=== PATIENT | male | born 1930 | race Caucasian/White ===

== ENCOUNTER 2016-08-14 12:54 | Inpatient (IN) | payer OTHER ==
--- NOTE | ~2016-08-14 | OP ---
Record Of Operation [facility] [address] [place]. [address] NAME: NAKITA RAI : 29 STATUS : ADM IN PAT#: [id number] AGE: 86 ADM/REG DATE : 08/14/16 MR#: [id number] REPORT SERV DATE: 08/15/16 DICTATED BY: Rae SILVA DATE: 08/15/16 REPORT STATUS : Draft TRANSCRIBED BY: MODL DATE: 08/15/16 DATE OF PROCEDURE: PREOPERATIVE DIAGNOSIS: Inability to place Cornejo catheter. POSTOPERATIVE DIAGNOSIS: Inability to place Cornejo catheter. PROCEDURE: Difficult Cornejo catheter, clot evacuation,. SURGEON: Rae Silva M.D. ANESTHESIA: Local. COMPLICATIONS: None. DRAINS: A 24-Ivorian, 3-way Cornejo catheter. BRIEF HISTORY: Mr. Rai is an 86-year-old, white male, admitted overnight with gross hematuria, apparent UTI, and a history of TURP. He had an 18-Ivorian Cornejo catheter placed in the ER, but he had continued bleeding and I felt he needed 3-way irrigation and ordered a 24-Ivorian 3-way Cornejo catheter on the floor, but they were unable to place it on multiple attempts. He has preop IVC filter placement and I asked him to get the catheter cart available to place catheters at bedside. I discussed this with the patient. DESCRIPTION OF PROCEDURE: Under excellent local anesthesia in the supine position, the patient was prepped and draped in a standard fashion. I used a 24-Ivorian 3-way Cornejo catheter. The urethra was somewhat tender and there was some obstruction proximally possibly due to a vesicle neck contracture. At any rate, I was able to, with some difficulty, enter the bladder and obtain dark-red urine. The blood appeared old. I put a total of 20 mL of sterile water in the balloon and initiated continuous bladder irrigation. The urine eventually cleared. I had to irrigate it by hand a few times and got several clots, but not a lot. I planned to leave my CBI. We will plan further evaluation pending his response to this. CLAUDY/ARTURO Rae Silva M.D. / [id number] CC: Cristóbal Hu M.D.
--- NOTE | ~2016-08-14 | DS ---
Discharge Summary [address] [place]. [address] NAME: NAKITA TOM : 29 STATUS : DIS IN PAT#: [id number] AGE: 86 ADM/REG DATE : 08/14/16 MR#: [id number] REPORT SERV DATE: 08/26/16 DICTATED BY: DATE: REPORT STATUS : Draft TRANSCRIBED BY: MODL DATE: 08/26/16 ADMISSION DATE: 08/14/2016 DISCHARGE DATE: 08/26/2016 PRIMARY ONCOLOGIST: Dr. Deniz Teague, [facility]. PRIMARY UROLOGIST: Dr. Ulises Pantoja. DISCHARGE DIAGNOSES: 1. Gross hematuria, persistent. 2. Chronic iron deficiency anemia. 3. Iliac deep venous thrombosis/bilateral pulmonary emboli. 4. Debility. 5. Metastatic prostate cancer. 6. Hypertension. 7. Urinary tract infection, resolved. CONSULTATIONS: 1. Dr. Ulises Pantoja, Urology, 08/15/2016. 2. Dr. Prakash Burnett, Vascular Surgery, 08/16/2016. 3. Dr. Deniz Teague, [facility], 08/17/2016. PERTINENT TEST AND PROCEDURES: Occurring between the dates of service 08/22/2016 and 08/26/2016: 1. Cystoscopy, clot evacuation, biopsy of prostatic urethra, Cornejo catheter exchange. 2. Surgical pathology report, 08/22/2016, final pathologic diagnosis regarding prostatic urethra biopsies. Prostatic ductal adenocarcinoma. CHIEF COMPLAINT UPON ADMISSION: Bloody urine and right leg swelling. HOSPITAL COURSE: Please refer to history and physical dated 08/15/[address] Hein for complete details of the patient's initial presentation upon admission and health history. Please also refer to consultations provided by Urology, Vascular Surgery, and Oncology occurring between the dates of 08/15/2016 and 08/17/2016. Please refer to interim discharge summary provided by Carmen Reis, nurse practitioner, for events occurring between the dates of service 08/15/2016 and 08/21/2016. Briefly, the patient is an 86-year-old male with a medical history significant for metastatic prostate cancer status post transurethral prostatectomy, who presented to the hospital on 08/14/2016 with complaints of right leg swelling and hematuria. Prior to admission, the patient was self-catheterization dependent. Several days prior to this admission, the patient noticed that urine was felicita blood and output was significantly decreased. The patient was admitted for further evaluation and treatment of acute urinary Discharge Summary [address] [place]. [address] NAME: NAKITA TOM : 29 STATUS : DIS IN PAT#: [id number] AGE: 86 ADM/REG DATE : 08/14/16 MR#: [id number] REPORT SERV DATE: 08/26/16 DICTATED BY: DATE: REPORT STATUS : Draft TRANSCRIBED BY: MODL DATE: 08/26/16 retention, hematuria, and right leg swelling. Dr. Pantoja, Urology was consulted regarding inability to successfully place Cornejo catheter. The patient underwent a successful placement of 24-Portuguese three-way Cornejo catheter and continuous bladder irrigation was initiated. 1. Gross hematuria, persistent. The patient received continuous bladder irrigation throughout almost entire admission secondary to persistent hematuria. The patient was followed by Urology daily. Several attempts were made to discontinue continuous bladder irrigation, but all were unsuccessful until yesterday. The patient has not received CBI for over 24 hours now. Hematuria is almost resolved. Urine is now lightly tea-colored with no evidence of felicita blood or clots. Cornejo catheter will remain in place upon discharge secondary to recent acute urinary retention. The patient will follow up with Dr. Pantoja, Urology in one month for a trial of voiding plus or minus Cornejo catheter exchange if trial of voiding unsuccessful. Home Health will follow the patient for management of Cornejo catheter care. 2. Chronic iron deficiency anemia. The patient's hemoglobin and hematocrit have remained stable despite gross hematuria. H and H is reported to be 9.3 and 28.7 today. 3. Iliac DVT/bilateral PEs. The patient had venous Doppler of right lower extremity on 08/14/2016 for complaints of lower extremity swelling. No clot was identified in the right deep system. However, there was a suggestion that there may be a clot in the iliac vein on the right side. At this time, the patient is not a candidate for anticoagulation secondary to gross hematuria. The patient underwent successful IVC filter placement on 08/16/2016. Anticoagulation will be restarted as an outpatient when hematuria has completely resolved and no further risks for bleeding are apparent. 4. Debility. This is secondary to metastatic prostate cancer and recent hospitalization. The patient is able to ambulate using a walker now. The patient declined to stay at [facility] at discharge. The patient will be followed by Home Health Care for physical therapy as an outpatient. 5. Metastatic prostate cancer. This will be managed per Dr. Deniz Teague at [facility]. Per Dr. Teague's instructions, Casodex was discontinued upon discharge. The patient most likely will start Zytiga/prednisone as an outpatient next week, and Lupron injections will be continued. 6. Hypertension. The patient will continue home dose of metoprolol upon discharge. Blood pressure has remained stable and is 119/62 with heart rate 84. 7. Urinary tract infection. The patient was treated for urinary tract infection, positive Citrobacter koseri. Treatment was completed 08/18/2016. There was no indication for additional antibiotics at discharge. DISCHARGE INSTRUCTIONS: 1. Follow up with Dr. Deniz Teague next week on Sunday or Sunday to start new treatment for metastatic prostate cancer and to decide whether or not the patient will undergo palliative radiation therapy for recent persistent hematuria. 2. Follow up with Dr. Pantoja in one month for management of Cornejo catheter and possible trial of voiding. 3. The patient was instructed to monitor Cornejo catheter output closely and to return to the emergency department for any sudden significant decrease in output, no urine output, or recurrence of gross hematuria. Discharge Summary [address] [address] NAME: NAKITA TOM : 29 STATUS : DIS IN [facility]#: [id number] AGE: 86 ADM/REG DATE : 08/14/16 MR#: [id number] REPORT SERV DATE: 08/26/16 DICTATED BY: DATE: REPORT STATUS : Draft TRANSCRIBED BY: ARTURO DATE: 08/26/16 [facility]/ARTURO SHAYE Rosado / [id number] CC: MD Salvador Louise II, M.D.
--- NOTE | ~2016-08-14 | IDS ---
Interim Discharge Summary [facility] [address] [place]. [address] NAME: NAKITA TOM : 29 STATUS : ADM IN LOCATED WITHIN [facility]#: [id number] AGE: 86 ADM/REG DATE : 08/14/16 MR#: [id number] REPORT SERV DATE: 08/21/16 DICTATED BY: MARTHA REIS DATE: 08/21/16 REPORT STATUS : Draft TRANSCRIBED BY: MODL DATE: 08/21/16 ADMISSION DATE: 08/14/2016 DISCHARGE DATE: DATE OF DISCHARGE: Unknown. INTERIM DIAGNOSES: 1. Urinary tract infection, positive Citrobacter koseri, completed treatment on August 18, 2016. 2. Metastatic prostate cancer. 3. Iliac deep vein thrombosis and bilateral pulmonary embolism. 4. Gross hematuria. 5. Iron deficiency anemia. 6. Debility. CONSULTATIONS: 1. Gu, Dr. Pantoja, August 15, 2016. 2. Oncology, Dr. Deniz Teague, August 16, 2016. PROCEDURES: 1. August 15, 2016, difficult Cornejo catheter placement, clot evacuation, Dr. Pantoja. 2. August 16, 2016, ultrasound-guided percutaneous access, left common femoral vein, inferior vena cava cavogram, placement of inferior vena cava filter ([place]) by Dr. Burnett. IMAGIN. Chest x-ray, August 14, 2016; impression, multiple bilateral pulmonary nodules of varying sizes consistent with hematogenous metastasis. 2. CT abdomen and pelvis, August 14, 2016; impression, multiple pulmonary nodules, both bilateral lung gonzalez, the largest in the right lower lobe, 2.7 cm diameter consistent with pattern of pulmonary metastasis disease. No film prior exam. Enlarged right external and internal iliac lymph node suspicious for a nodule metastatic disease. Enlarged prostate gland with diffuse infiltration periprostatic fat planes and effacement of the fat planes between the prostate and seminal vesicles suggesting extraprostatic extension of malignancy in the appropriate clinical setting. Diffusely thickened bladder, which is decompensated with Cornejo catheter. Bladder thickening may represent sequelae of chronic cystitis. Chronic bladder outlet obstruction or infiltration of the bladder from malignancy. Diverticulosis descending and sigmoid colon, not acute diverticulitis pattern status post cystoscopy. 3. Venous Doppler ultrasound, lower extremity, August 14, 2016; impression, no clot in the right deep system. There may be a clot in the iliac vein on the right side. 4. CT of the chest, abdomen, and pelvis, August 16, 2016; impression, bilateral moderate volume pulmonary emboli involving bilateral upper lobe and to a lesser degree, bilateral lower lobe pulmonary artery branches as described, on the right. There is some filling deficit in the distal right main pulmonary artery. Finding compatible with extensive pulmonary metastasis disease with nodules measuring up to 24 x 29 mm on Interim Discharge Summary [address] [address] NAME: NAKITA TOM : 29 STATUS : ADM IN PAT#: [id number] AGE: 86 ADM/REG DATE : 08/14/16 MR#: [id number] REPORT SERV DATE: 08/21/16 DICTATED BY: MARTHA REIS DATE: 08/21/16 REPORT STATUS : Draft TRANSCRIBED BY: ARTURO DATE: 08/21/16 the right and up to 20 x 25 mm on the left. Bilateral lower lobe atelectasis, right greater than left with trace right pleural fluid. Stable right iliac chain lymphadenopathy. 5. Bone scan on August 16, 2016; impression, suspect bony metastasis in the pelvis. Possible degenerative changes in the midthoracic spine. 6. MRI of the brain, August 16, 2016; impression, chronic small vessel ischemic changes volume loss. No acute finding demonstrated on noncontrast and contrast-enhanced MRI. Examination of the brain specifically has no evidence of metastatic disease. LABORATORY DATA: August 21, 2016: WBC 6.4, his hemoglobin 10.2, hematocrit 30.5, and platelet count is 186. COURSE OF HOSPITAL STAY: Please refer to history and physical dictated by Dr. Hein on August 14, 2016, for complete admission details, as well as consultation notes by Dr. Pantoja and Dr. Teague. This patient is an 86-year-old male, who presented in [facility]'s Emergency Room with complaints of right lower extremity swelling and bloody urine. He does present with a history of prostate cancer. He has been under the care of Dr. Dowd at [facility], was currently taking Lupron. He also presents with a history of hypertension, status post transurethral prostatectomy. He did present with complaints of right lower leg swelling and hematuria. The patient stated that prostate surgery was several years ago. Initially, he has done well, but did not receive chemotherapy or radiation. The patient did state that around May, he noticed an immediate hematuria during occasional self- catheterization. He was evaluated by Dr. Dowd, but no intervention at that time. The patient stated he had ongoing worsening of hematuria. Prior to this hospitalization, the patient stated self-catheterization; he noticed felicita blood and then at that time felt that he needed to be evaluated in the emergency room. 1. Urinary tract infection. Positive Citrobacter koseri. The patient was initially started on ceftriaxone upon admission. Cultures did reveal positive infection, was then changed to Ceftin. The patient did complete treatment on August 18, 2016. 2. Metastatic prostate cancer. As noted above, the patient has been followed by Dr. Dowd at [facility], had not seen an oncologist. They stated that he had been given Lupron in the past. The patient was evaluated by Dr. Deniz Teague of [facility]. At this time, Oncology is following. No treatment plan has been finalized due to determining the patient's performance status. 3. Iliac DVT and bilateral PEs status post IVC filter placed on August 16, [address] Burnett. The patient at this time has been unable to use anticoagulation due to gross hematuria. Oncology again is also following. 4. Gross hematuria. As noted upon admission, the patient was having felicita blood. Dr. Pantoja was consulted to see the patient. At the time of admission, the patient did undergo placement of a 3-way Cornejo catheter with continuous bladder irrigation. The patient has been monitored. At this time, the patient is potentially undergoing a cystoscopy in the morning with Dr. Pantoja. 5. Iron deficiency anemia. As noted, the patient's upon admission, the patient's hemoglobin was 7.6. The patient's hemoglobin was monitored and was 7.6, 10.5. The patient was evaluated for iron deficiency anemia. He was given Nulecit and started on Interim Discharge Summary [address] [address] NAME: NAKITA TOM : 29 STATUS : ADM IN LOCATED WITHIN [facility]#: [id number] AGE: 86 ADM/REG DATE : 08/14/16 MR#: [id number] REPORT SERV DATE: 08/21/16 DICTATED BY: MARTHA REIS DATE: 08/21/16 REPORT STATUS : Draft TRANSCRIBED BY: MODFernando DATE: 08/21/16 per protocol. At this time, the patient's hemoglobin was 10.2, hematocrit 30.5. He is being continued to be monitored. 6. Debility. The patient has had decreased performance status prior to this admission. PT evaluation was ordered on August 18, 2016. This was pending. The patient should be evaluated today. Discharge plan will be per their recommendations. 7. Disposition. guest house manager is working with the patient regarding discharge planning. At this time, it is unknown if the patient will be intermediate facility versus rehab versus home health PT. Oncology has continued to evaluate the patient. I am unsure per performance status if he will be eligible for chemotherapy and due to patient's progressed disease, the patient may transition to hospice. 8. The patient will be followed by Dr. Yuriy Cortez. [facility]/MODL Martha Reis NP / [id number] CC: MD Salvador Rios M.D.
--- NOTE | ~2016-08-14 | CN ---
Consultation Report [facility] [address] [place]. [address] NAME: NAKITA RAI : 29 STATUS : ADM IN PAT#: [id number] AGE: 86 ADM/REG DATE : 08/14/16 MR#: [id number] REPORT SERV DATE: 08/16/16 DICTATED BY: Rae SILVA DATE: 08/15/16 REPORT STATUS : Draft TRANSCRIBED BY: MODL DATE: 08/15/16 DATE OF CONSULTATION: CHIEF COMPLAINT: Gross hematuria, UTI, and possible DVT. HISTORY OF PRESENT ILLNESS: Mr. Rai is an 86-year-old, white male, who underwent a TURP some time in 2015. Apparently, he was found to have prostate cancer, but I have no operative note or other imaging to document that. This was apparently done by Dr. Dowd at [place]. He was in retention prior to that and continues on self-catheterization by his description. He has been bleeding since May and I have no idea why it took him so long to come and that be evaluated or why he is here. At any rate, he was seen in the emergency room last night with gross hematuria and found to have apparent urinary tract infection and a possible pelvic DVT. An 18-Maltese Cornejo catheter was replaced and it has drained reasonably well since that time. PAST MEDICAL HISTORY: Glaucoma, reflux esophagitis, hypertension, arthritis, and BPH. PAST SURGICAL HISTORY: 1. Vasectomy, 03/30/2015, TUMT. 2. December 2015, TURP. 3. Cholecystectomy. 4. Partial knee replacement. 5. Cardiac ablation. 6. Hernia repair. FAMILY HISTORY: Negative for urologic disease. SOCIAL HISTORY: The patient denies use of alcohol or tobacco. He is a previous smoker. REVIEW OF SYSTEMS: Except as noted above, full twelve-point review of systems is negative. PHYSICAL EXAMINATION: GENERAL: Elderly white male, afebrile with normal vital signs. Alert oriented x3. CHEST: No respiratory distress. HEART: Regular rate and rhythm. ABDOMEN: Nontender, nondistended. It is flat. No suprapubic distention noted. He has an indwelling 18-Maltese Cornejo draining bloody red urine. : He has a normal-appearing penis; otherwise, digital exam not performed. EXTREMITIES: He has some right lower extremity edema. PERTINENT LABORATORY: Creatinine 0.87. Hemoglobin 10.5. IMPRESSION: 1. History of transurethral resection of the prostate with persistent urinary retention. Consultation Report [id number] [place]. [address] NAME: NAKITA RAI : 29 STATUS : ADM IN PAT#: [id number] AGE: 86 ADM/REG DATE : 08/14/16 MR#: [id number] REPORT SERV DATE: 08/16/16 DICTATED BY: Rae SILVA DATE: 08/15/16 REPORT STATUS : Draft TRANSCRIBED BY: ARTURO DATE: 08/15/16 2. History of prostate cancer found at the time of transurethral resection of the prostate, stage unknown. 3. Gross hematuria. 4. Urinary tract infection. 5. Possible deep vein thrombosis. PLAN: 1. We will try to get the records from [place] to see if we can elucidate his history a little bit better. 2. I think he needs to be changed to a larger 3-way Cornejo, preferably the 24-Maltese. This was attempted by the nurses x2 at the bedside and I had to place a 24-Maltese Cornejo irrigated clots and began him on CBI. Further clot evacuation operative inspection will depend upon his clinical course. I believe he is going to have an IVC filter placed and hold off on anticoagulation for now. CLAUDY/ARTURO Rae Silva M.D. / [id number] CC: Cristóbal Hu M.D. Amar Singh, MD
--- NOTE | ~2016-08-14 | OP ---
Record Of [facility] [address] [place]. [address] NAME: NAKITA RAI : 29 STATUS : ADM IN [facility]#: [id number] AGE: 86 ADM/REG DATE : 08/14/16 MR#: [id number] REPORT SERV DATE: 08/16/16 DICTATED BY: DEBBIE BURNETT DATE: 08/16/16 REPORT STATUS : Draft TRANSCRIBED BY: MODL DATE: 08/16/16 DATE OF PROCEDURE: 08/15/2016 PREOPERATIVE DIAGNOSIS: Deep venous thrombosis with contraindication to anticoagulation. POSTOPERATIVE DIAGNOSIS: Deep venous thrombosis with contraindication to anticoagulation. PROCEDURE: 1. Ultrasound-guided percutaneous access, left common femoral vein. 2. Inferior vena cavogram. 3. Placement of inferior vena cava filter. ([place]). SURGEON: Debbie Burnett M.D. INSPECTOR REPAIRER [place]: [place]. ANESTHESIA: Local with MAC. ESTIMATED BLOOD LOSS: 10 mL. CONTRAST: 20 mL. COMPLICATIONS: None. INDICATION: Mr. Rai is a pleasant 86-year-old man, admitted to the hospital with right lower extremity DVT. Unfortunately, he has gross hematuria which has been worsening recently. As a result, he cannot be anticoagulated. We were asked to place inferior vena cava filter to prevent pulmonary embolism. DETAILS OF PROCEDURE: After informed consent was obtained, the patient was brought to the endovascular suite, and placed in supine position. After administration of IV sedation, he was prepped and draped in usual sterile fashion. A time-out was performed. I commenced the procedure with ultrasound-guided percutaneous access of the left common femoral vein. A permanent image of vein documenting patency was saved and stored in the patient's chart. I accessed with an 18-gauge entry needle and passed a Bentson wire confirmed within the vena cava under fluoroscopy. We then dilated subcutaneous tract. I then advanced the delivery sheath for the [place] inferior vena cava filter of the inferior vena cava. Inferior vena cavogram was performed which showed a patent inferior vena cava with no thrombus. Renal veins were visualized. The filter was deployed with the tip at the level of renal veins. The filter was in good position. After that the wires and catheters were removed. The puncture site was closed with 4-0 Monocryl and a pressure dressing. The patient tolerated the procedure well with no complications. MWF/MODL Record Of [facility] [address] [address] NAME: NAKITA RAI : 29 STATUS : ADM IN [facility]#: [id number] AGE: 86 ADM/REG DATE : 08/14/16 MR#: [id number] REPORT SERV DATE: 08/16/16 DICTATED BY: DEBBIE BURNETT DATE: 08/16/16 REPORT STATUS : Draft TRANSCRIBED BY: MODL DATE: 08/16/16 Debbie Burnett M.D. / [id number] CC: Cristóbal Hu M.D.
--- NOTE | ~2016-08-14 | OP ---
Record Of Operation [facility] [address] [place] [place]. [address] NAME: NAKITA RAI : 29 STATUS : ADM IN PAT#: [id number] AGE: 86 ADM/REG DATE : 08/14/16 MR#: [id number] REPORT SERV DATE: 08/22/16 DICTATED BY: Rae SILVA DATE: 08/22/16 REPORT STATUS : Draft TRANSCRIBED BY: MODL DATE: 08/22/16 DATE OF PROCEDURE: 08/22/2016 PREOPERATIVE DIAGNOSIS: Persistent gross hematuria with history of metastatic prostate cancer. POSTOPERATIVE DIAGNOSIS: Persistent gross hematuria with history of metastatic prostate cancer, locally advanced prostate cancer with dramatic prostatic urethral involvement. PROCEDURES: Cystoscopy, clot evacuation, biopsy of prostatic urethra, examination under anesthesia, Cornejo catheter placement. SURGEON: Rae Silva M.D. ANESTHESIA: General endotracheal. COMPLICATIONS: None. DRAINS: A 24-Thai three-way Cornejo catheter. BRIEF HISTORY: Mr. Rai is an 86-year-old white male, found to have high-grade prostate cancer at transurethral resection last year. He has been bleeding for several months, finally he came to the hospital. He had a catheter in for about a week. While further evaluation was undertaken and while it is cleared largely, he had persistent bleeding and the consideration has been to proceed with external beam radiation therapy for attempts at controlling his hematuria versus other therapies and/or hospice. We felt that we needed to make sure his bladder was clear before proceeding and the above procedure was proposed. Risks of bleeding, infection, anesthesia, inability to eradicate disease were discussed. There were no unanswered questions. DESCRIPTION OF PROCEDURE: Under excellent general anesthesia, the patient was prepped and draped in a standard lithotomy position. Digital exam revealed a flat firm prostate with extension bilaterally. Cystoscopy was performed with a 30-degree lens, revealed a normal anterior urethra. Posterior urethra showed a likely high-grade tumor that completely replaced the entire prostatic urethra. There was no discernible bladder neck. The urethra was fixed as one might expect and I could never find either ureteral orifice. The bladder itself actually was spared and there was only a small amount of clot that had to be evacuated. There were multiple pieces of tissue in the prostatic urethra and I biopsied several of these trying to not create any more bleeding that was already present. I did not feel that further resection would probably help with the situation and may worsen the problem and decided to terminate the procedure. I placed a 24-Thai three-way Cornejo catheter making sure it was all the way to the bladder and placed 40 mL of sterile water in the balloon. This left only about 2 cm of exposed catheter. So, in addition to the above, his catheter might have been pulled partially into his prostatic urethra. At any rate, we would put him back on CBI and plan to proceed as indicated. The pathology will likely confirm the visual diagnosis and further treatment with systemic therapy, local therapy, Record Of Operation [address] [place]. [address] NAME: NAKITA RAI : 29 STATUS : ADM IN PAT#: [id number] AGE: 86 ADM/REG DATE : 08/14/16 MR#: [id number] REPORT SERV DATE: 08/22/16 DICTATED BY: Rae SILVA DATE: 08/22/16 REPORT STATUS : Draft TRANSCRIBED BY: ARTURO DATE: 08/22/16 etc, will have to be determined after consultation with the patient and his family. CLAUDY/ARTURO Rae Silva M.D. / [id number] CC: MD Salvador Louise II, M.D. Davey B. Daniel, M.D.
--- NOTE | ~2016-08-14 | HP ---
History And Physical [place] [facility] [place]. [address] NAME: NAKITA TOM : 29 STATUS : ADM IN [facility]#: [id number] AGE: 86 ADM/REG DATE : 08/14/16 MR#: [id number] REPORT SERV DATE: 08/15/16 DICTATED BY: WHIT MCLEAN DATE: 08/14/16 REPORT STATUS : Draft TRANSCRIBED BY: ARTURO DATE: 08/14/16 DATE OF ADMISSION: 08/14/2016 CHIEF COMPLAINT: Right leg swelling and bloody urine. HISTORY OF PRESENT ILLNESS: This is an 86-year-old male with medical history significant for hypertension, prostate cancer, status post transurethral prostatectomy, who presented to the hospital with complaints of right leg swelling and hematuria. The patient reported that he had a prostate surgery several years ago and was initially doing well, did not receive any chemotherapy or radiation therapy. Post prostatectomy, has actually had a Cornejo catheter which was later discontinued. It was later advised to continue self intermittent catheterization. He reports that he continues to follow up with Urology, Dr. Dowd at the [facility] without any significant complications. However, around May, he noticed that he had intermittent hematuria doing occasional self catheterization. In the last few days, he reports that he has been having frequency and nocturia, had to wake up multiple times at night to perform self catheterization. In the last 24 hours, he noticed that he has been having less urine output. He also noticed that the hematuria has continued to progressively get worse. Prior to presentation in the hospital, he said he performed a self-catheterization at home and noticed that the urine was felicita blood, and hence decided to come to the hospital. He also complained of progressive right leg swelling that has been getting worse in the last 6 months. There is associated significant warmth and redness of the right lower extremity. He denies any shortness of breath. No chest pain. No palpitation. No presyncope and no syncopal episode. He also denies any fever. No chills. No abdominal pain or flank pain. PAST MEDICAL HISTORY: Significant for: 1. Hypertension. 2. Prostate cancer. PAST SURGICAL HISTORY: Prostatectomy. ALLERGIES: HE IS ALLERGIC TO ASPIRIN. HOME MEDICATIONS: 1. Cyanocobalamin 1000 mcg p.o. daily. 2. Artificial Tears 1 alternative p.r.n. 3. Glucosamine chondroitin tab 2 tabs p.o. daily. 4. Ascorbic acid 500 mg p.o. daily. 5. PreserVision AREDS two soft gels 1 capsule p.o. b.i.d. 6. Zioptan 0.0015% eye drops, 1 drop at bedtime. 7. Pravastatin 20 mg tab p.o. daily. 8. Metoprolol 50 mg tab p.o. daily. 9. Lupron 1 dose IM q.4 hours. FAMILY HISTORY: Denies any history of prostate cancer, colon cancer, diabetes as well as History And Physical [address] [address] NAME: NAKITA TOM : 29 STATUS : ADM IN [facility]#: [id number] AGE: 86 ADM/REG DATE : 08/14/16 MR#: [id number] REPORT SERV DATE: 08/15/16 DICTATED BY: WHIT MCLEAN DATE: 08/14/16 REPORT STATUS : Draft TRANSCRIBED BY: ARTURO DATE: 08/14/16 coronary artery disease. SOCIAL HISTORY: Denies drinking alcohol. Smoking cigarettes or illicit drug use. Presently lives with his . REVIEW OF SYSTEMS: A 12-point review of systems performed essentially negative except for positive findings as per HPI. PHYSICAL EXAMINATION: VITAL SIGNS: Blood pressure 133/74 mmHg, pulse 98 beats per minute, respiratory rate 18 cycles per minute. GENERAL: Not in any acute distress. Alert and oriented x3. HEENT: Normocephalic, atraumatic. Extraocular muscles intact. Not pale. Nonicteric. Oral mucosa moist. NECK: Supple. CHEST: Equal expansion. Nontender. LUNGS: Clear to auscultation bilaterally. CARDIOVASCULAR: Regular rate and rhythm. S1, S2. No gallops, no rubs, no murmurs. ABDOMEN: Bowel sounds normoactive, soft, and nontender. No palpable organomegaly. Costovertebral angle tenderness negative. EXTREMITIES: Right lower extremity is edematous, tender, red and warmth. Left lower extremities intact. NEUROLOGIC: Alert and oriented x3. Cranial nerves 2 through 12 intact. Strength in all extremities 5/5. LABORATORY DATA: Chemistry: Sodium 132, potassium 4.3, chloride 94, bicarb 28, BUN 16, creatinine 0.87, GFR 78, glucose 105, and calcium 8.5. Total protein 6.6, albumin 3.3, globulin 3.3, albumin to globulin ratio 1.0, alkaline phosphatase 96, ALT 15, AST 42, total bilirubin 0.8. Hematology; WBC 7.6, hemoglobin 10.5, hematocrit 32.3, MCV 82.2, platelets 103, INR 1.3, PTT 41.6. Urinalysis: Apparent cloudy, leukocyte esterase positive, wbc greater than 182, rbc greater than 182, WBC clumps many. Urine culture are pending. Blood cultures ordered. IMAGING: Venous Doppler ultrasound. Impression, no clot in the right deep system. There may be a clot in the iliac vein on the right side. SUMMARY: This is an 86-year-old male with medical history significant for hypertension, prostate cancer, status post transurethral prostatectomy, who presented to the hospital with acute urinary retention, hematuria, and right lower extremity swelling. ASSESSMENT AND PLAN: 1. Hematuria. 2. Possible urinary tract infection. 3. Acute deep vein thrombosis in the iliac system. 4. Normocytic anemia. 5. Adenocarcinoma of the prostate. History And Physical [address] [address] NAME: NAKITA TOM : 29 STATUS : ADM IN [facility]#: [id number] AGE: 86 ADM/REG DATE : 08/14/16 MR#: [id number] REPORT SERV DATE: 08/15/16 DICTATED BY: WHIT MCLEAN DATE: 08/14/16 REPORT STATUS : Draft TRANSCRIBED BY: ARTURO DATE: 08/14/16 6. Hypertension. PLAN: 1. Hematuria. The patient's Cornejo catheter was successfully placed in the ER to relieve the patient's acute urinary retention. Urine bag full of felicita blood noted. The patient's hemoglobin on presentation is 10.5. We will continue to monitor the patient's hemoglobin. I will consult Urology for possible urinary irrigation at this time. I will also obtain a CT of the abdomen and pelvis to rule out acute pelvic mass. I will obtain CT of the abdomen and pelvis to rule out any intra-abdominal or pelvic pathology such as malignancy. 2. UTI. The patient presented with frequency, urgency, and also noted to have some acute urinary retention and hematuria. The patient's urinalysis shows positive leukocyte esterase and WBC clumps. Given the patient's known urology symptoms, I will start the patient on empiric IV ceftriaxone and will follow the patient's urine culture. 3. History of prostate cancer, status post transurethral prostatectomy. The patient reported that post surgery, he was told by his primary urologist that the surgery was also for curative intent, and no evidence of recurrence of disease. At this time, we will consult Urology to help guide the patient's management. 4. Acute DVT of the iliac system. Based on patient's presentation and known findings on ultrasound of the right lower extremity, I will go ahead and consult Vascular Surgery for possible placement of an IVC filter. This patient will not be able to undergo anticoagulation due to acute ongoing bleed due to the hematuria. 5. Normocytic anemia secondary to acute blood loss. We will monitor H and H at this point. 6. Thrombocytopenia. No definitive etiology for the patient's thrombocytopenia. At this time, we will continue to monitor the patient's platelet count. If the patient's platelet count drops below 150 with evidence of ongoing bleed, we will consider transfusing platelets at this time. 7. Hypertension. We will recommend the patient's home dose of antihypertensives and continue to monitor blood pressure closely. 8. DVT prophylaxis is contraindicated due to active bleeding. 9. Code status is full code. 10.The patient to be admitted to the Hospitalist Service and will be followed up. Urology and vascular surgeon have been consulted at this time. IOO/MODL Whit Mclean MD / [id number] CC: Cristóbal Tee M.D.
--- NOTE | ~2016-08-14 | HP ---
History And Physical [address] [address] NAME: NAKITA TOM : 29 STATUS : ADM IN [facility]#: [id number] AGE: 86 ADM/REG DATE : 08/14/16 MR#: [id number] REPORT SERV DATE: 08/15/16 DICTATED BY: WHIT MCLEAN DATE: 08/14/16 REPORT STATUS : Draft TRANSCRIBED BY: ARTURO DATE: 08/14/16 DATE OF ADMISSION: 08/14/2016 CHIEF COMPLAINT: Bloody urine and right leg swelling. HISTORY OF PRESENT ILLNESS: DICTATION ENDS HERE CHANRDAKANT/ARTURO Whit Mclean MD / [id number] CC: Cristóbal Tee M.D.
--- NOTE | ~2016-08-14 | CN ---
Consultation Report [facility] [address] [place]. [address] NAME: AMANDO RAI : 29 STATUS : ADM IN PAT#: [id number] AGE: 86 ADM/REG DATE : 08/14/16 MR#: [id number] REPORT SERV DATE: 08/17/16 DICTATED BY: DENIZ TEAGUE DATE: 08/16/16 REPORT STATUS : Draft TRANSCRIBED BY: MODL DATE: 08/16/16 CONSULTATION NOTE. DATE OF CONSULTATION: REASON FOR CONSULTATION: Metastatic prostate cancer. HISTORY OF PRESENT ILLNESS: Mr. Rai is an 86-year-old gentleman, who reports few other medical problems prior to some difficulty with urination last year. He underwent a transurethral prostatectomy and was found to have a Adelina 9 prostate cancer. This was done on 12/07/2015. He was found to have a Gratiot 5+4=9 prostate cancer in the transurethral specimen. He reports that in January or February, he was placed on Lupron with a second injection 6 months later. The patient reports that in June his PSA was decreasing. However, beginning in May, he started having worsening hematuria. He was brought to the emergency room last night due to worsening of the hematuria as well as right leg pain with worsening swelling over the last few days. He was found to have no clot in the right leg, possibly a small clot in the iliac vein on the right side. CT scan on the chest however showed bilateral moderate volume pulmonary emboli in the upper lobe and to a lesser degree lower lobes. He was also found to have multiple large pulmonary nodules measuring 2 to 3 cm in both lungs suggestive of metastatic disease. CT scan of abdomen and pelvis showed fullness in the right iliacs suggestive of a DVT. There is an area of sclerosis in the left pubic ramus as well. The patient has had a Cornejo catheter placed with continuous bladder irrigation, which seems to be helping the bleeding. He had an IVC filter placed to decrease the risk of further emboli to the lung. His CT scan also showed significant infiltration into the bladder likely from the prostate. His PSA is 26 at this time. He is unable to tell me what his last PSA was. Renal function is normal. Albumin is decreased to 2.6. Blood count showed a hemoglobin of 9.3 with an MCV of 91, suggesting iron deficiency related to the bleeding. PAST MEDICAL HISTORY: Hypertension, prostate cancer diagnosed in 2016, Adelina 9. PAST SURGICAL HISTORY: Transurethral prostatectomy. ALLERGIES: TO ASPIRIN. HOME MEDICATIONS: B12, Artificial Tears, glucosamine, ascorbic acid, pravastatin, metoprolol, Lupron q.4 months to q.6 months. FAMILY HISTORY: No family history of prostate cancer or breast cancer. SOCIAL HISTORY: He works for [employer] in [employer], does not drink or smoke. Lives with his of many years. REVIEW OF SYSTEMS: Consultation Report [address] [place]. [address] NAME: AMANDO RAI : 29 STATUS : ADM IN PAT#: [id number] AGE: 86 ADM/REG DATE : 08/14/16 MR#: [id number] REPORT SERV DATE: 08/17/16 DICTATED BY: DENIZ TEAGUE DATE: 08/16/16 REPORT STATUS : Draft TRANSCRIBED BY: ARTURO DATE: 08/16/16 A 12-point review of systems; mild weight loss, chronic edema in both legs, but worsening on the right leg recently, positive for shortness of breath, positive for weight loss and fatigue. PHYSICAL EXAMINATION: VITAL SIGNS: Temperature is 98.1, heart rate of 96, BP 104/51. HEENT: Pupils equal, round, reactive. Extraocular movements are intact. There are no oral lesions. He has some temporal wasting. LUNGS: Clear to auscultation. No wheezes or rales. CARDIAC: Regular rate and rhythm. Normal S1, S2. ABDOMEN: Soft, scaphoid, nontender nondistended. No hepatomegaly. No splenomegaly. EXTREMITIES: There is chronic edema in the right leg greater than the left leg. DIAGNOSTIC DATA: A CT scan was personally reviewed and discussed the results with the patient. 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 He reports that he has been on Lupron for the last six months. 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 His performance status at this point looks quite poor and I am unsure whether further treatment should be considered or not. I think we can reassess after he has had a few days of recovery before deciding whether to consider adding Zytiga to the Lupron. Iron-deficiency anemia. This is from his chronic anemia, will need some oral iron supplements at some point. Confirmed the patient's advanced directive wishes. He did not wish to be intubated or resuscitated. POST form has been completed on the chart. One of my partners will follow with him through this week. DBD/MODL Deniz Teague M.D. / [id number] CC: Cristóbal Hu M.D. J. Patrick Dilworth, M.D.
[~2016-08-14 12:54] MED LIST: FISH-EPA1000 MG PO; GLUCCHONDR PO; LECITHIN PO; LOP50 PO; LUTEIN20 MG OR; NASONEX NAS; PRILO PO; SYSTANE OP; ZOCOR20 PO
[2016-08-14 14:38] LABS: BASOPHILS 0.1 %; BASOPHILS ABSOLUTE 0.01 10/3/uL (0.0-0.16); EOSINOPHILS 0 %; IMMATURE GRANULOCYTES 0.3 %; IMMATURE GRANULOCYTES ABSOLUTE 0.02 10/3/uL (0.0-0.11); LYMPHOCYTES 10.4 %; LYMPHOCYTES ABSOLUTE 0.79 10/3/uL (0.67-4.30); MEAN CORPUSCULAR HEMOGLOB 26.7 pg (26.0-34.0); MEAN CORPUSCULAR VOLUME 82.2 fL (80-100); MONOCYTES 10.2 %; MONOCYTES ABSOLUTE 0.77 10/3/uL (0.21-1.20); NEUTROPHILS ABSOLUTE 5.97 10/3/uL (2.02-8.40); PLATELET COUNT 103 10/3/uL (150-400); RBC DISTRIBUTION WIDTH 15.6 % (12.0-16.0); RED CELL COUNT 3.93 10/6/uL (4.7-6.1); WHITE BLOOD CELLS 7.6 10/3/uL (4.5-10.5)
[2016-08-14 14:39] LABS: HEMATOCRIT 32.3 % (40.0-51.0); HEMOGLOBIN 10.5 g/dL (13.6-17.8); MANUAL DIFF NO %; MEAN CORPUS HGB CONC 32.5 g/dL (32.0-36.0)
[2016-08-14 14:56] LABS: ALBUMIN 3.3 G/DL (3.5-5.0); ALKALINE PHOSPHATASE 96 U/L (45-117); BUN (BLOOD UREA NITROGEN) 16 MG/DL (6-23); CALCIUM, SERUM 8.5 MG/DL (8.5-10.4); CHLORIDE, SERUM 94 MMOL/L (96-112); CO2 (CARBON DIOXIDE) 28 MMOL/L (24-34); CREATININE 0.87 MG/DL (0.70-1.30); GFR AFRICAN AMERICAN 90 ML/MIN (>=60); GFR NON AFRICAN AMERICAN 78 ML/MIN (>=60); POTASSIUM, SERUM 4.3 MMOL/L (3.5-5.3); SGOT(AST) 42 U/L (5-40); SGPT(ALT) 15 U/L (5-65); SODIUM, SERUM 132 MMOL/L (135-148); TOTAL BILIRUBIN 0.8 MG/DL (0-1.2); TOTAL PROTEIN 6.6 G/DL (6.0-8.5)
[2016-08-14 14:58] LABS: GLOBULIN 3.3 G/DL (2.5-4.1); GLUCOSE, SERUM 105 MG/DL (60-99)
[2016-08-14 15:27] LABS: INTERNATIONAL NORMAL RATI 1.3 UNITS (-); PROTIME (NOT ORD) 15.7 SEC (12.0-14.5)
[2016-08-14 15:31] LABS: PROCALCITONIN <0.05 ng/mL (<0.5)
[2016-08-14] MEDS ORDERED: VITAMIN B-3 PO (17:22)
[2016-08-14] MEDS ORDERED: CYANO1000T PO (17:23)
[2016-08-14] MEDS ORDERED: GLUCCHONDR PO (17:23)
[2016-08-14] MEDS ORDERED: REFRESH OPH (17:23)
[2016-08-14] MEDS ORDERED: MEGA RED KRILL OIL PO (17:24)
[2016-08-14] MEDS ORDERED: VITC500 PO (17:24)
[2016-08-14] MEDS ORDERED: ZIOPTAN 0.00151 EACH OPH (17:25)
[2016-08-14] MEDS ORDERED: PRAVAC PO (17:25)
[2016-08-14] MEDS ORDERED: PRESERVISION A1 EAC1 PO (17:25)
[2016-08-14] MEDS ORDERED: LUPRON IM (17:26)
[2016-08-14] MEDS ORDERED: LOP50 PO (17:26)
[2016-08-14 17:46] LABS: ASCORBIC ACID (UR NOT ORDER) 20 (NEG); BILIRUBIN, URINE NEGATIVE (NEG); ER URINALYSIS TAT 0 Hrs 24 Mins; KETONE, URINE NEGATIVE (NEG); LEUKOCYTE ESTERASE(NOT OR MOD (NEG); NITRITE (URINE) NEG (NEG)
[2016-08-14 17:47] LABS: WBC (NOT ORDERED) (RFLEX) > 182 (0-5)
[2016-08-14 21:35] LABS: FREE T4 1.16 NG/DL (0.76-1.46); ULTRASENSITIVE TSH 0.916 MCIU/ML (0.358-3.740)
[2016-08-15 07:22] LABS: BASOPHILS 0.1 %; BASOPHILS ABSOLUTE 0.01 10/3/uL (0.0-0.16); EOSINOPHILS 0.1 %; EOSINOPHILS ABSOLUTE 0.01 10/3/uL (0.0-0.53); HEMATOCRIT 29.8 % (40.0-51.0); HEMOGLOBIN 9.9 g/dL (13.6-17.8); IMMATURE GRANULOCYTES 0.3 %; IMMATURE GRANULOCYTES ABSOLUTE 0.02 10/3/uL (0.0-0.11); LYMPHOCYTES 18.3 %; LYMPHOCYTES ABSOLUTE 1.37 10/3/uL (0.67-4.30); MANUAL DIFF NO %; MEAN CORPUS HGB CONC 33.2 g/dL (32.0-36.0); MEAN CORPUSCULAR HEMOGLOB 27.1 pg (26.0-34.0); MEAN CORPUSCULAR VOLUME 81.6 fL (80-100); MEAN PLATELET VOLUME 8.5 fL (9.2-13.0); MONOCYTES 14.8 %; MONOCYTES ABSOLUTE 1.11 10/3/uL (0.21-1.20); NEUTROPHILS 66.4 %; NEUTROPHILS ABSOLUTE 4.96 10/3/uL (2.02-8.40); PLATELET COUNT 118 10/3/uL (150-400); RBC DISTRIBUTION WIDTH 15.8 % (12.0-16.0); RED CELL COUNT 3.65 10/6/uL (4.7-6.1); WHITE BLOOD CELLS 7.5 10/3/uL (4.5-10.5)
[2016-08-15 07:49] LABS: BUN (BLOOD UREA NITROGEN) 17 MG/DL (6-23); CALCIUM, SERUM 8.4 MG/DL (8.5-10.4); CHLORIDE, SERUM 93 MMOL/L (96-112); CO2 (CARBON DIOXIDE) 27 MMOL/L (24-34); GFR AFRICAN AMERICAN 98 ML/MIN (>=60); GFR NON AFRICAN AMERICAN 85 ML/MIN (>=60); GLUCOSE, SERUM 106 MG/DL (60-99); PHOSPHORUS, SERUM 2.7 MG/DL (2.5-4.5); POTASSIUM, SERUM 3.9 MMOL/L (3.5-5.3); SODIUM, SERUM 130 MMOL/L (135-148)
[2016-08-15 12:05] LABS: HEMATOCRIT 29.6 % (40.0-51.0); HEMOGLOBIN 9.6 g/dL (13.6-17.8)
[2016-08-15 22:04] LABS: HEMOGLOBIN 9.9 g/dL (13.6-17.8)
[2016-08-16 05:29] LABS: BASOPHILS 0.1 %; BASOPHILS ABSOLUTE 0.01 10/3/uL (0.0-0.16); EOSINOPHILS 0.1 %; EOSINOPHILS ABSOLUTE 0.01 10/3/uL (0.0-0.53); HEMATOCRIT 29.6 % (40.0-51.0); HEMOGLOBIN 9.8 g/dL (13.6-17.8); IMMATURE GRANULOCYTES 0.2 %; IMMATURE GRANULOCYTES ABSOLUTE 0.02 10/3/uL (0.0-0.11); LYMPHOCYTES 12.6 %; LYMPHOCYTES ABSOLUTE 1.12 10/3/uL (0.67-4.30); MEAN CORPUS HGB CONC 33.1 g/dL (32.0-36.0); MEAN CORPUSCULAR HEMOGLOB 26.9 pg (26.0-34.0); MEAN CORPUSCULAR VOLUME 81.3 fL (80-100); MEAN PLATELET VOLUME 8.8 fL (9.2-13.0); MONOCYTES ABSOLUTE 1.07 10/3/uL (0.21-1.20); NEUTROPHILS ABSOLUTE 6.67 10/3/uL (2.02-8.40); PLATELET COUNT 122 10/3/uL (150-400); RBC DISTRIBUTION WIDTH 15.6 % (12.0-16.0); RED CELL COUNT 3.64 10/6/uL (4.7-6.1); RETICULOCYTE COUNT 1.6 % (0.5-2.5); RETICULOCYTE COUNT ABSOLUTE 59.7 10/3/uL (20.2-119.8); WHITE BLOOD CELLS 8.9 10/3/uL (4.5-10.5)
[2016-08-16 05:30] LABS: MANUAL DIFF NO %
[2016-08-16 05:42] LABS: % IRON SAT 6 % (20-50); BUN (BLOOD UREA NITROGEN) 14 MG/DL (6-23); CALCIUM, SERUM 8.6 MG/DL (8.5-10.4); CHLORIDE, SERUM 95 MMOL/L (96-112); CO2 (CARBON DIOXIDE) 26 MMOL/L (24-34); CREATININE 0.58 MG/DL (0.70-1.30); FERRITIN 175 NG/ML (26-388); GFR AFRICAN AMERICAN 106 ML/MIN (>=60); GFR NON AFRICAN AMERICAN 92 ML/MIN (>=60); GLUCOSE, SERUM 121 MG/DL (60-99); IRON BINDING CAPACITY 325 MCG/DL (250-450); IRON, SERUM 18 MCG/DL (35-150); POTASSIUM, SERUM 4.6 MMOL/L (3.5-5.3); SGOT(AST) 46 U/L (5-40); SGPT(ALT) 13 U/L (5-65); SODIUM, SERUM 130 MMOL/L (135-148); TOTAL BILIRUBIN 0.4 MG/DL (0-1.2); TOTAL PROTEIN 5.7 G/DL (6.0-8.5)
[2016-08-16 05:47] LABS: A/G RATIO 0.8 (0.7-1.9); ALBUMIN 2.6 G/DL (3.5-5.0); ALKALINE PHOSPHATASE 83 U/L (45-117); GLOBULIN 3.1 G/DL (2.5-4.1)
[2016-08-16 13:02] LABS: HEMATOCRIT 33.7 % (40.0-51.0); HEMOGLOBIN 11.1 g/dL (13.6-17.8)
[2016-08-16 17:51] LABS: HEMOGLOBIN 9.3 g/dL (13.6-17.8)
[2016-08-16 17:53] LABS: HEMATOCRIT 28.8 % (40.0-51.0)
[2016-08-17 00:21] LABS: HEMATOCRIT 27.6 % (40.0-51.0); HEMOGLOBIN 9.2 g/dL (13.6-17.8)
[2016-08-17 06:31] LABS: HEMOGLOBIN 9.1 g/dL (13.6-17.8)
[2016-08-17 12:05] LABS: HEMATOCRIT 27.9 % (40.0-51.0); HEMOGLOBIN 9.1 g/dL (13.6-17.8)
[2016-08-18 05:09] LABS: BASOPHILS 0.3 %; BASOPHILS ABSOLUTE 0.02 10/3/uL (0.0-0.16); EOSINOPHILS 2.4 %; EOSINOPHILS ABSOLUTE 0.19 10/3/uL (0.0-0.53); HEMATOCRIT 26.8 % (40.0-51.0); HEMOGLOBIN 8.8 g/dL (13.6-17.8); IMMATURE GRANULOCYTES ABSOLUTE 0.08 10/3/uL (0.0-0.11); LYMPHOCYTES 20.6 %; LYMPHOCYTES ABSOLUTE 1.61 10/3/uL (0.67-4.30); MEAN CORPUS HGB CONC 32.8 g/dL (32.0-36.0); MEAN CORPUSCULAR HEMOGLOB 26.7 pg (26.0-34.0); MEAN CORPUSCULAR VOLUME 81.5 fL (80-100); MEAN PLATELET VOLUME 8.7 fL (9.2-13.0); MONOCYTES 12.7 %; MONOCYTES ABSOLUTE 0.99 10/3/uL (0.21-1.20); NEUTROPHILS ABSOLUTE 4.93 10/3/uL (2.02-8.40); PLATELET COUNT 147 10/3/uL (150-400); RBC DISTRIBUTION WIDTH 15.5 % (12.0-16.0); RED CELL COUNT 3.29 10/6/uL (4.7-6.1); WHITE BLOOD CELLS 7.8 10/3/uL (4.5-10.5)
[2016-08-18 05:19] LABS: BUN (BLOOD UREA NITROGEN) 13 MG/DL (6-23); CALCIUM, SERUM 8.1 MG/DL (8.5-10.4); CHLORIDE, SERUM 91 MMOL/L (96-112); CO2 (CARBON DIOXIDE) 28 MMOL/L (24-34); CREATININE 0.63 MG/DL (0.70-1.30); GFR AFRICAN AMERICAN 103 ML/MIN (>=60); GFR NON AFRICAN AMERICAN 89 ML/MIN (>=60); GLUCOSE, SERUM 99 MG/DL (60-99); POTASSIUM, SERUM 3.7 MMOL/L (3.5-5.3); SODIUM, SERUM 128 MMOL/L (135-148)
[2016-08-18 05:21] LABS: MANUAL DIFF NO %
[2016-08-19 06:55] LABS: BASOPHILS 0.2 %; BASOPHILS ABSOLUTE 0.01 10/3/uL (0.0-0.16); EOSINOPHILS 4.9 %; EOSINOPHILS ABSOLUTE 0.29 10/3/uL (0.0-0.53); HEMATOCRIT 27.6 % (40.0-51.0); HEMOGLOBIN 9.1 g/dL (13.6-17.8); IMMATURE GRANULOCYTES 1.7 %; LYMPHOCYTES 22.4 %; LYMPHOCYTES ABSOLUTE 1.33 10/3/uL (0.67-4.30); MEAN CORPUSCULAR HEMOGLOB 27.1 pg (26.0-34.0); MEAN CORPUSCULAR VOLUME 82.1 fL (80-100); MEAN PLATELET VOLUME 8.3 fL (9.2-13.0); MONOCYTES 11.6 %; MONOCYTES ABSOLUTE 0.69 10/3/uL (0.21-1.20); NEUTROPHILS 59.2 %; NEUTROPHILS ABSOLUTE 3.53 10/3/uL (2.02-8.40); PLATELET COUNT 145 10/3/uL (150-400); RBC DISTRIBUTION WIDTH 15.5 % (12.0-16.0); RED CELL COUNT 3.36 10/6/uL (4.7-6.1)
[2016-08-19 07:13] LABS: BUN (BLOOD UREA NITROGEN) 9 MG/DL (6-23); CALCIUM, SERUM 8.3 MG/DL (8.5-10.4); CHLORIDE, SERUM 91 MMOL/L (96-112); CO2 (CARBON DIOXIDE) 29 MMOL/L (24-34); CREATININE 0.51 MG/DL (0.70-1.30); GFR AFRICAN AMERICAN 112 ML/MIN (>=60); GFR NON AFRICAN AMERICAN 97 ML/MIN (>=60); GLUCOSE, SERUM 93 MG/DL (60-99); POTASSIUM, SERUM 3.8 MMOL/L (3.5-5.3); SODIUM, SERUM 128 MMOL/L (135-148)
[2016-08-19 07:16] LABS: MANUAL DIFF NO %
[2016-08-19 07:31] LABS: PLATELET ESTIMATE SLT DEC (ADEQUATE); RBC MORPHOLOGY NORM (NORMAL)
[2016-08-20 06:53] LABS: BASOPHILS 0.2 %; BASOPHILS ABSOLUTE 0.01 10/3/uL (0.0-0.16); EOSINOPHILS 4.1 %; EOSINOPHILS ABSOLUTE 0.23 10/3/uL (0.0-0.53); HEMATOCRIT 29.1 % (40.0-51.0); HEMOGLOBIN 9.6 g/dL (13.6-17.8); IMMATURE GRANULOCYTES 1.4 %; IMMATURE GRANULOCYTES ABSOLUTE 0.08 10/3/uL (0.0-0.11); LYMPHOCYTES 23.4 %; LYMPHOCYTES ABSOLUTE 1.32 10/3/uL (0.67-4.30); MEAN CORPUSCULAR VOLUME 81.7 fL (80-100); MEAN PLATELET VOLUME 8.2 fL (9.2-13.0); MONOCYTES 12.4 %; NEUTROPHILS 58.5 %; NEUTROPHILS ABSOLUTE 3.31 10/3/uL (2.02-8.40); PLATELET COUNT 157 10/3/uL (150-400); RBC DISTRIBUTION WIDTH 15.4 % (12.0-16.0); RED CELL COUNT 3.56 10/6/uL (4.7-6.1); WHITE BLOOD CELLS 5.7 10/3/uL (4.5-10.5)
[2016-08-20 06:54] LABS: MANUAL DIFF NO %
[2016-08-21 06:37] LABS: BASOPHILS 0.3 %; BASOPHILS ABSOLUTE 0.02 10/3/uL (0.0-0.16); EOSINOPHILS 2.2 %; EOSINOPHILS ABSOLUTE 0.14 10/3/uL (0.0-0.53); HEMATOCRIT 30.5 % (40.0-51.0); HEMOGLOBIN 10.2 g/dL (13.6-17.8); IMMATURE GRANULOCYTES 2.3 %; IMMATURE GRANULOCYTES ABSOLUTE 0.15 10/3/uL (0.0-0.11); LYMPHOCYTES 20.4 %; LYMPHOCYTES ABSOLUTE 1.31 10/3/uL (0.67-4.30); MEAN CORPUS HGB CONC 33.4 g/dL (32.0-36.0); MEAN CORPUSCULAR HEMOGLOB 27.5 pg (26.0-34.0); MEAN CORPUSCULAR VOLUME 82.2 fL (80-100); MEAN PLATELET VOLUME 8.5 fL (9.2-13.0); MONOCYTES 10.9 %; NEUTROPHILS 63.9 %; NEUTROPHILS ABSOLUTE 4.09 10/3/uL (2.02-8.40); PLATELET COUNT 186 10/3/uL (150-400); RBC DISTRIBUTION WIDTH 15.5 % (12.0-16.0); RED CELL COUNT 3.71 10/6/uL (4.7-6.1); WHITE BLOOD CELLS 6.4 10/3/uL (4.5-10.5)
[2016-08-21 06:38] LABS: MANUAL DIFF NO %
[2016-08-22 03:37] LABS: BASOPHILS 0.1 %; BASOPHILS ABSOLUTE 0.01 10/3/uL (0.0-0.16); EOSINOPHILS 2.9 %; HEMATOCRIT 28.9 % (40.0-51.0); HEMOGLOBIN 9.5 g/dL (13.6-17.8); IMMATURE GRANULOCYTES 2.7 %; IMMATURE GRANULOCYTES ABSOLUTE 0.18 10/3/uL (0.0-0.11); LYMPHOCYTES 28.9 %; LYMPHOCYTES ABSOLUTE 1.96 10/3/uL (0.67-4.30); MEAN CORPUS HGB CONC 32.9 g/dL (32.0-36.0); MEAN CORPUSCULAR HEMOGLOB 27.2 pg (26.0-34.0); MEAN CORPUSCULAR VOLUME 82.8 fL (80-100); MEAN PLATELET VOLUME 8.2 fL (9.2-13.0); MONOCYTES 11.5 %; MONOCYTES ABSOLUTE 0.78 10/3/uL (0.21-1.20); NEUTROPHILS 53.9 %; NEUTROPHILS ABSOLUTE 3.66 10/3/uL (2.02-8.40); PLATELET COUNT 172 10/3/uL (150-400); RED CELL COUNT 3.49 10/6/uL (4.7-6.1); WHITE BLOOD CELLS 6.8 10/3/uL (4.5-10.5)
[2016-08-22 03:38] LABS: MANUAL DIFF NO %
[2016-08-22 03:51] LABS: BUN (BLOOD UREA NITROGEN) 10 MG/DL (6-23); CALCIUM, SERUM 8.1 MG/DL (8.5-10.4); CHLORIDE, SERUM 95 MMOL/L (96-112); CO2 (CARBON DIOXIDE) 31 MMOL/L (24-34); CREATININE 0.68 MG/DL (0.70-1.30); GFR AFRICAN AMERICAN 100 ML/MIN (>=60); GFR NON AFRICAN AMERICAN 86 ML/MIN (>=60); GLUCOSE, SERUM 91 MG/DL (60-99); POTASSIUM, SERUM 4.2 MMOL/L (3.5-5.3); SODIUM, SERUM 133 MMOL/L (135-148)
[2016-08-23 04:15] LABS: BASOPHILS 0.3 %; BASOPHILS ABSOLUTE 0.02 10/3/uL (0.0-0.16); EOSINOPHILS 2.9 %; EOSINOPHILS ABSOLUTE 0.19 10/3/uL (0.0-0.53); HEMATOCRIT 28.7 % (40.0-51.0); HEMOGLOBIN 9.3 g/dL (13.6-17.8); IMMATURE GRANULOCYTES 2.1 %; IMMATURE GRANULOCYTES ABSOLUTE 0.14 10/3/uL (0.0-0.11); LYMPHOCYTES 20.2 %; LYMPHOCYTES ABSOLUTE 1.34 10/3/uL (0.67-4.30); MEAN CORPUS HGB CONC 32.4 g/dL (32.0-36.0); MEAN CORPUSCULAR HEMOGLOB 27.9 pg (26.0-34.0); MEAN PLATELET VOLUME 8.4 fL (9.2-13.0); MONOCYTES 10.2 %; MONOCYTES ABSOLUTE 0.68 10/3/uL (0.21-1.20); NEUTROPHILS 64.3 %; NEUTROPHILS ABSOLUTE 4.28 10/3/uL (2.02-8.40); PLATELET COUNT 175 10/3/uL (150-400); RBC DISTRIBUTION WIDTH 16.4 % (12.0-16.0); RED CELL COUNT 3.33 10/6/uL (4.7-6.1); WHITE BLOOD CELLS 6.7 10/3/uL (4.5-10.5)
[2016-08-23 04:16] LABS: MANUAL DIFF NO %; MEAN CORPUSCULAR VOLUME 86.2 fL (80-100)
[2016-08-23 04:35] LABS: BUN (BLOOD UREA NITROGEN) 10 MG/DL (6-23); CALCIUM, SERUM 7.9 MG/DL (8.5-10.4); CHLORIDE, SERUM 94 MMOL/L (96-112); CO2 (CARBON DIOXIDE) 33 MMOL/L (24-34); CREATININE 0.66 MG/DL (0.70-1.30); GFR AFRICAN AMERICAN 101 ML/MIN (>=60); GFR NON AFRICAN AMERICAN 87 ML/MIN (>=60); GLUCOSE, SERUM 98 MG/DL (60-99); POTASSIUM, SERUM 4.4 MMOL/L (3.5-5.3); SODIUM, SERUM 132 MMOL/L (135-148)
[2016-08-24 05:37] LABS: BASOPHILS 0.3 %; BASOPHILS ABSOLUTE 0.02 10/3/uL (0.0-0.16); EOSINOPHILS 2.8 %; EOSINOPHILS ABSOLUTE 0.17 10/3/uL (0.0-0.53); HEMATOCRIT 28.7 % (40.0-51.0); HEMOGLOBIN 9.4 g/dL (13.6-17.8); IMMATURE GRANULOCYTES 3.1 %; IMMATURE GRANULOCYTES ABSOLUTE 0.19 10/3/uL (0.0-0.11); LYMPHOCYTES 24.6 %; MEAN CORPUS HGB CONC 32.8 g/dL (32.0-36.0); MEAN CORPUSCULAR HEMOGLOB 27.9 pg (26.0-34.0); MEAN CORPUSCULAR VOLUME 85.2 fL (80-100); MEAN PLATELET VOLUME 8.3 fL (9.2-13.0); MONOCYTES 12.8 %; MONOCYTES ABSOLUTE 0.78 10/3/uL (0.21-1.20); NEUTROPHILS 56.4 %; NEUTROPHILS ABSOLUTE 3.44 10/3/uL (2.02-8.40); PLATELET COUNT 181 10/3/uL (150-400); RBC DISTRIBUTION WIDTH 16.6 % (12.0-16.0); RED CELL COUNT 3.37 10/6/uL (4.7-6.1); WHITE BLOOD CELLS 6.1 10/3/uL (4.5-10.5)
[2016-08-24 05:42] LABS: MANUAL DIFF NO %
[2016-08-24 05:47] LABS: BUN (BLOOD UREA NITROGEN) 9 MG/DL (6-23); CALCIUM, SERUM 8.2 MG/DL (8.5-10.4); CHLORIDE, SERUM 95 MMOL/L (96-112); CO2 (CARBON DIOXIDE) 30 MMOL/L (24-34); CREATININE 0.56 MG/DL (0.70-1.30); GFR AFRICAN AMERICAN 108 ML/MIN (>=60); GFR NON AFRICAN AMERICAN 93 ML/MIN (>=60); GLUCOSE, SERUM 91 MG/DL (60-99); SODIUM, SERUM 132 MMOL/L (135-148)
[2016-08-25 07:06] LABS: BASOPHILS 0.2 %; BASOPHILS ABSOLUTE 0.01 10/3/uL (0.0-0.16); EOSINOPHILS 4.1 %; EOSINOPHILS ABSOLUTE 0.21 10/3/uL (0.0-0.53); HEMATOCRIT 28.8 % (40.0-51.0); HEMOGLOBIN 9.4 g/dL (13.6-17.8); IMMATURE GRANULOCYTES 3.3 %; IMMATURE GRANULOCYTES ABSOLUTE 0.17 10/3/uL (0.0-0.11); LYMPHOCYTES 30.7 %; LYMPHOCYTES ABSOLUTE 1.59 10/3/uL (0.67-4.30); MEAN CORPUS HGB CONC 32.6 g/dL (32.0-36.0); MEAN CORPUSCULAR HEMOGLOB 27.4 pg (26.0-34.0); MEAN PLATELET VOLUME 8.3 fL (9.2-13.0); MONOCYTES 10.4 %; MONOCYTES ABSOLUTE 0.54 10/3/uL (0.21-1.20); NEUTROPHILS 51.3 %; NEUTROPHILS ABSOLUTE 2.66 10/3/uL (2.02-8.40); PLATELET COUNT 182 10/3/uL (150-400); RBC DISTRIBUTION WIDTH 17.1 % (12.0-16.0); RED CELL COUNT 3.43 10/6/uL (4.7-6.1); WHITE BLOOD CELLS 5.2 10/3/uL (4.5-10.5)
[2016-08-25 07:13] LABS: MANUAL DIFF NO %
[2016-08-25 07:16] LABS: BUN (BLOOD UREA NITROGEN) 11 MG/DL (6-23); CALCIUM, SERUM 8.3 MG/DL (8.5-10.4); CHLORIDE, SERUM 93 MMOL/L (96-112); CO2 (CARBON DIOXIDE) 32 MMOL/L (24-34); CREATININE 0.63 MG/DL (0.70-1.30); GFR AFRICAN AMERICAN 103 ML/MIN (>=60); GFR NON AFRICAN AMERICAN 89 ML/MIN (>=60); GLUCOSE, SERUM 90 MG/DL (60-99); POTASSIUM, SERUM 3.8 MMOL/L (3.5-5.3); SODIUM, SERUM 133 MMOL/L (135-148)
[2016-08-26 06:18] LABS: BASOPHILS 0.2 %; BASOPHILS ABSOLUTE 0.01 10/3/uL (0.0-0.16); EOSINOPHILS 3.1 %; EOSINOPHILS ABSOLUTE 0.17 10/3/uL (0.0-0.53); HEMATOCRIT 28.7 % (40.0-51.0); HEMOGLOBIN 9.3 g/dL (13.6-17.8); IMMATURE GRANULOCYTES 2.7 %; IMMATURE GRANULOCYTES ABSOLUTE 0.15 10/3/uL (0.0-0.11); LYMPHOCYTES 31.6 %; LYMPHOCYTES ABSOLUTE 1.74 10/3/uL (0.67-4.30); MEAN CORPUS HGB CONC 32.4 g/dL (32.0-36.0); MEAN CORPUSCULAR HEMOGLOB 27.5 pg (26.0-34.0); MEAN CORPUSCULAR VOLUME 84.9 fL (80-100); MEAN PLATELET VOLUME 8.3 fL (9.2-13.0); MONOCYTES 9.1 %; NEUTROPHILS 53.3 %; NEUTROPHILS ABSOLUTE 2.94 10/3/uL (2.02-8.40); PLATELET COUNT 171 10/3/uL (150-400); RBC DISTRIBUTION WIDTH 17.6 % (12.0-16.0); RED CELL COUNT 3.38 10/6/uL (4.7-6.1); WHITE BLOOD CELLS 5.5 10/3/uL (4.5-10.5)
[2016-08-26 06:27] LABS: MANUAL DIFF NO %
[2016-08-26 06:28] LABS: BUN (BLOOD UREA NITROGEN) 13 MG/DL (6-23); CALCIUM, SERUM 8.3 MG/DL (8.5-10.4); CHLORIDE, SERUM 97 MMOL/L (96-112); CO2 (CARBON DIOXIDE) 32 MMOL/L (24-34); CREATININE 0.63 MG/DL (0.70-1.30); GFR AFRICAN AMERICAN 103 ML/MIN (>=60); GFR NON AFRICAN AMERICAN 89 ML/MIN (>=60); GLUCOSE, SERUM 87 MG/DL (60-99); POTASSIUM, SERUM 4.2 MMOL/L (3.5-5.3); SODIUM, SERUM 134 MMOL/L (135-148)
[2016-08-26] MEDS ORDERED: VITAMIN C100 MG PO (11:39)
[2016-08-26] MEDS ORDERED: PRADAXA150 MG PO (11:39)
[2016-08-26] MEDS ORDERED: VITAMIN D31000 UNIT PO (11:39)
[2016-08-26] MEDS ORDERED: ASAB PO (11:39)
[2016-08-26] MEDS ORDERED: CASODEX 50 MG T50 MG PO (12:32)
[2016-08-26] MEDS ORDERED: MULTIPLE VIT PO (12:33)
[2016-08-26] MEDS ORDERED: T PO (12:34)
[2016-08-26] MEDS ORDERED: MIRALAX POWDER1 PKT PO (12:34)
[2016-08-26] MEDS ORDERED: SENTAB PO (12:35)
== END 2016-08-26 15:18 | disposition home health service (06) | DRG 673 ==
LOC: ER 12:54 → 4SO 18:57 → 6NO 08-15 03:55 → 4EA 08-17 07:51
PROVIDERS: Hospitalist; Internal Medicine; Nurse Practitioner Adult Health; Nurse Practitioner Family; Surgery
PROC: 0TCD8ZZ Extirpation of Matter from Urethra, Via Natural or Artificial Opening Endoscopic (ICD-10-PCS; 2016-08-15)
PROC: 06H03DZ Insertion of Intraluminal Device into Inferior Vena Cava, Percutaneous Approach (ICD-10-PCS; principal; 2016-08-15 16:45)
PROC: 0TCD8ZZ Extirpation of Matter from Urethra, Via Natural or Artificial Opening Endoscopic (ICD-10-PCS; 2016-08-22)
PROC: 0TBD8ZX Excision of Urethra, Via Natural or Artificial Opening Endoscopic, Diagnostic (ICD-10-PCS; 2016-08-22)
DX: N39.0 Urinary tract infection, site not specified (principal); I26.99 Other pulmonary embolism without acute cor pulmonale; N02.9 Recurrent and persistent hematuria with unspecified morphologic changes; I82.421 Acute embolism and thrombosis of right iliac vein; E87.1 Hypo-osmolality and hyponatremia; C61 Malignant neoplasm of prostate; I10 Essential (primary) hypertension; Z66 Do not resuscitate; D50.9 Iron deficiency anemia, unspecified
CPT/HCPCS: 36415; 37191; 70553; 71020; 71260; 74176; 74177; 78306; 80048; 80053; 81001; 82728; 83540; 83550; 83605; 83735; 84100; 84145; 84153; 84439; 84443; 85014; 85018; 85025; 85045; 85610; 86850; 86900; 86901; 87040; 87077; 87086; 87186; 88112; 88305; 88341; 88342; 93005; 93971; 97110-GP; 97116-GP; 97161-GP; 99285; A9270-GY; A9561; A9577; C1758; C1769; C1880; J2370; J2405; J2710; J2916; J3010; Q9966; Q9967